=== PATIENT | male | born 1985 | race Caucasian/White ===

== ENCOUNTER 2021-06-29 22:33 | Emergency (ER) | payer SELFPAY ==
[2021-06-29 23:08] VITALS: BP 117/77; PULSE 87; TEMP 98.4; BMI 31.7
== END 2021-06-30 00:14 | disposition home or self-care (01) ==
LOC: JER 22:33
PROC: 3E023GC Introduction of Other Therapeutic Substance into Muscle, Percutaneous Approach (ICD-10-PCS; principal; 2021-06-29)
DX: K08.89 Other specified disorders of teeth and supporting structures (principal)
CPT/HCPCS: 99284-25